=== PATIENT | female | born 1980 | race Caucasian/White ===

== ENCOUNTER → 2017-04-04 | Outpatient (CLI) | payer BC ==
[~2017-04-04] MED LIST: AMOX500T2 PO; OFLO5DRO3 OP; PROM5SYR PO
--- NOTE | 2017-04-05 08:45 | DI ---
Indication: ITS.REASON: M79.671 PAIN IN RIGHT FOOT PROCEDURE: FOOT RIGHT 3 VIEWS: Encounter: Initial Comparison: None Findings: There is no acute fracture, dislocation or malalignment identified. Impression: No acute osseous abnormality. .
== END ==
LOC: IMA 17:59
PROVIDERS: ATTEND Family Medicine
DX: M79.671 Pain in right foot (principal)